=== PATIENT | male | born 1945 | race Caucasian/White ===

== ENCOUNTER 2018-10-17 15:30 | Inpatient (IN) ==
[2018-10-17 16:02] LABS: BASO# 0.01 X1000 (0.0-0.2); BASO% 0.1 % (0.0-0.8); EOS# 0.01 X1000 (0.0-0.7); EOS% 0.1 % (0.0-10.0); HEMATOCRIT 28.2 % (42.0-52.0); HEMOGLOBIN 10.3 g/dL (14.0-18.0); IMM GRAN# 0.04 X1000 (0.0-0.04); IMM GRAN% 0.4 % (0.0-0.5); LYMPH# 1.07 X1000 (1.2-3.4); LYMPH% 9.9 % (20.5-51.1); MCH 34.4 PG (27-31); MCHC 36.5 g/dL (33-37); MCV 94.3 FL (81-99); MONO# 1.31 X1000 (0.11-0.59); MONO% 12.1 % (1.7-9.3); MPV 9.3 FL (7.4-10.4); NEUT# 8.35 X1000 (1.4-6.5); NEUT% 77.4 % (42.2-75.2); PLT 103 X1000 (130-400); RBC 2.99 XMIL (4.7-6.1); RDW 14.9 % (11.5-14.5); WBC 10.79 X1000 (4.8-10.8)
[2018-10-17 16:28] LABS: ALB/GLOB RATIO 0.5; ALBUMIN 2.5 g/dL (3.5-5.0); CALCIUM 8.8 mg/dL (8.8-10.2); CREATININE 2.1 mg/dL (0.7-1.2); POTASSIUM 5.3 mmol/L (3.5-5.1); TOTAL BILIRUBIN 4.19 mg/dL (0.20-1.00); TOTAL PROTEIN 7.3 g/dL (6.3-8.3)
--- NOTE | 2018-10-17 18:51 | PROVIDER DOCUMENTATION ---
This chart was entered by Martha Malone Scribe, acting as scribe for Joshua Lizarraga MD. HPI-General Adult - General Chief Complaint: Edema Stated Complaint: EDEMA,FARTING LIQUID Time Seen by Provider: 10/17/18 18:09 Source: patient Allergies/Adverse Reactions: Patient Allergies Allergy/AdvReac Type Severity Reaction Status Date / Time meperidine [From Demerol] Allergy ITCHING Verified 04/23/18 23:06 Home Medications: Home Medication List Medication Instructions Recorded Confirmed Last Taken Type Atenolol 50 mg PO DAILY 01/30/17 04/23/18 04/23/18 History BENAZEpril [Lotensin] 20 mg PO DAILY 01/30/17 04/23/18 04/23/18 History Hydrocodone/APAP 7.5 mg/325 mg 1 each PO Q6H PRN PRN #30 tablet 02/01/1704/23/18 Rx [[place]-7.5] - History of Present Illness -Gen Adult Nature of Presenting Problems: Pt is 73/m presenting to ED w/ extreme abd and leg edema. Sts that it has been progressively worsening over the last month. He was diagnosed w/ cirrhosis last year sometime and is in liver failure. He sts that he currently takes no medications, he was only rx bp meds, but his pressure has been down lower and he has not taken it. He sts that he has also not been taking lasix because his pressure has been so low. Location of Pain/Injury: reports: abdomen, lower extremity, other (edema) Severity: reports: severe Onset/Duration: reports: other (progressively over 1 month) Timing: reports: getting worse Context/Activities at Onset: reports: none Modifying Factors: improves with: nothing Associated Symptoms: denies: nausea, shortness of breath, vomiting Similar Symptoms Previously?: Yes Recently seen or treated by another doctor?: Yes Review of Systems - Adult - REVIEW OF SYSTEMS - ADULT Constitutional: reports: no symptoms reported. denies: chills, fever Eyes: reports: no symptoms reported Ears, Nose, Mouth & Throat: reports: no symptoms reported Cardiovascular: reports: edema, heart murmur. denies: chest pain Respiratory: denies: cough, shortness of breath, wheezing Gastrointestinal: denies: abdominal pain, diarrhea, nausea, vomiting Genitourinary: reports: no symptoms reported Musculoskeletal: reports: no symptoms reported Integumentary: reports: no symptoms reported Neurological: reports: no symptoms reported. denies: dizziness/vertigo, headache/migraines Psychiatric: reports: no symptoms reported Endocrine: reports: no symptoms reported Hematologic/Lymphatic: reports: no symptoms reported Allergic/Immunologic: reports: no symptoms reported All Other Systems: Reviewed and Negative Past History - Adult - PAST MEDICAL HISTORY-ADULT Review of Records: reports: Old Records Reviewed, Nursing Assessment Review, Medications Reviewed, Social history reviewed & non-contributory. - SOCIAL HISTORY Smoking: quit greater than 1 year Substance Use: none presently/history of abuse, alcohol Alcohol Use Frequency: sober (former use) (4-5 drinks a day until 3 months ago) Physical Exam-General - CONSTITUTIONAL General Appearance: appears well, alert, no apparent distress - EYES Eyes: PERRL/EOMI - HEAD, EARS, NOSE, MOUTH & THROAT HENMT: moist mucous membranes, normal ENT inspection, TMs normal, pharynx normal - NECK Neck: non-tender, full range of motion, supple, normal inspection - RESPIRATORY Respiratory: chest non-tender, lungs clear, normal breath sounds - CARDIOVASCULAR Cardiovascular: systolic murmur (3/6), other (pt has chronic 3+ edema to lower legs, pt has extreme edema to abd.) - GASTROINTESTINAL (ABDOMEN) Abdominal Exam: other (extreme edema) - LYMPHATIC Lymphatic: no adenopathy - MUSCULOSKELETAL Back Exam: normal inspection Extremity: normal range of motion, non-tender, normal gait, normal inspection - SKIN Integumentary: normal color, warm/dry - NEUROLOGIC Neurologic: grossly normal - PSYCHIATRIC Psych/Mental Status: normal mood/affect, normal thought content, normal thought process, oriented x 3 Progress - PLAN OF CARE/RESULTS Progress/Plan/Lab Results: Vital Signs - 8 hr 10/17/18 15:41 Temperature 97.9 F Pulse Rate 85 Respiratory Rate 20 Blood Pressure 97/23 O2 Sat by Pulse Oximetry 88 L Laboratory Results - last 24 hr 10/17/18 10/17/18 15:48 15:48 WBC 10.79 RBC 2.99 L Hgb 10.3 L Hct 28.2 L MCV 94.3 MCH 34.4 H MCHC 36.5 RDW Std Deviation 14.9 H Plt Count 103 L MPV 9.3 Immature Gran % (Auto) 0.4 Neut % (Auto) 77.4 H Lymph % (Auto) 9.9 L Ray % (Auto) 12.1 H Eos % (Auto) 0.1 Baso % (Auto) 0.1 Immature Gran # (Auto) 0.04 Neut # (Auto) 8.35 H Lymph # (Auto) 1.07 L Ray # (Auto) 1.31 H Eos # (Auto) 0.01 Baso # (Auto) 0.01 Sodium 121 L Potassium 5.3 H Chloride 87 L Carbon Dioxide 22 L Anion Gap 12 BUN 52 H Creatinine 2.1 H Estimated GFR/1.73 m2 31 BUN/Creatinine Ratio 25 Glucose 53 L Calculated Osmolality 256 Calcium 8.8 Total Bilirubin 4.19 H AST 203 H ALT 47 H Alkaline Phosphatase 57 Total Protein 7.3 Albumin 2.5 L Globulin 4.8 Albumin/Globulin Ratio 0.5 Amylase 161 Lipase 74 H Orders Category Date Time Status Saline Loc DIRECTED Care 10/17/18 15:46 Active NPO Diet 10/17/18 15:46 Active AMYLASE [CHEM] Stat Lab 10/17/18 15:48 Completed CBC WITH ELECTRONIC DIFF [HEME] Stat Lab 10/17/18 15:48 Completed COMPREHENSIVE METABOLIC PANEL [CHEM] Stat Lab 10/17/18 15:48 Completed LIPASE [CHEM] Stat Lab 10/17/18 15:48 Completed URINALYSIS W/POSS RFLX CULT [URINALYSIS] Stat Lab 10/17/18 15:46 Uncollected Result Diagrams: 10/17/18 15:48 10/17/18 15:48 - CONSULTS/PCP/HOSPITALIST Notification #1 *Consult/PCP/Hospitalist*: Dr. Nowak, Hospitalist Time Discussed: 18:34 Reason/Comments: Pt will be admitted, per Hospitalist Consult Disposition: Admit Departure - Departure Date of Disposition Decision: 10/17/18 Time of Disposition Decision: 18:50 DIAGNOSIS: Cirrhosis, Electrolyte disturbance, LURDES (acute kidney injury) Disposition: ADMITTED INPATIENT 09 Certified Medical Emergency: Emergent Condition: Stable Referrals and Follow-Ups: None,PCP [Primary Care Provider] - - Critical Care Note This patient required my direct & personal management of CC.: No Attestation - Physician/ TAVARES Attestation Patient care was provided by Advanced Practice Provider:: No The physician spent face to face time with patient:: Yes Advanced Practice Provider documentation review:: Supervising physician onsite and consulted in the evaluation and care of this patient. The physician did have a face to face encounter with the patient. This chart was documented by the indicated scribe, (Martha Malone, Rafaelibe) and accurately reflects the services I performed and decisions made by me, Joshua Lizarraga MD, as attested by the provider's signature.
--- NOTE | 2018-10-17 20:10 | Diag Imaging Result Doc PS360 ---
EXAM: CHEST-PORTABLE - 10/17/2018 HISTORY: liver failure TECHNIQUE: Portable chest COMPARISON: None. FINDINGS: Heart size appears within normal limits. Inspiration is mildly shallow. There is mild prominence of central vascular markings. There is mild basilar subsegmental atelectasis. There is no consolidation, pleural effusion, or pneumothorax identified. IMPRESSION: Mildly shallow inspiration. Mild prominence of central vascular markings. Mild basilar subsegmental atelectasis. Electronically signed by Tyshawn Christensen 10/17/2018 8:08 PM
[2018-10-17] MEDS ORDERED: CALCIUM GLUCONATE IV PUSH ONE (20:59)
[2018-10-17] MEDS ORDERED: ALBUTEROL 0.5% INH CONC FOR HYPERKALEMIA INH ONE (20:59)
[2018-10-17] MEDS ORDERED: HUMULIN R IV ONE (21:00)
[2018-10-17] MEDS ORDERED: D50W SYRINGE IV ONE (21:00)
[2018-10-17] MEDS ORDERED: LASIX 100 MG in NS 90 ML IV SCH (21:00)
[2018-10-17] MEDS: ALBUMIN 25% IV SCH (22:05)
[2018-10-17 22:31] LABS: URINE SOURCE CATH
[2018-10-17 22:34] LABS: BILIRUBIN URINE SMALL (NEGATIVE); BLOOD URINE TRACE (NEGATIVE); COLOR YELLOW; GLUCOSE URINE NEGATIVE (NEGATIVE); KETONE URINE 10 mg/dL (NEGATIVE); LEUKOCYTES URINE NEGATIVE (NEGATIVE); NITRITE URINE NEGATIVE (NEGATIVE); PH URINE 5.5; PROTEIN URINE TRACE mg/dL (NEGATIVE); SP GRAVITY URINE 1.014; TURBIDITY URINE HAZY (CLEAR); UR EPITHELIAL CELLS <10 /HPF (<10); URINE BACTERIA NEGATIVE /HPF; URINE WBC <10 /HPF (<10); UROBILINOGEN URINE 2 mg/dL (NORMAL)
--- NOTE | 2018-10-17 23:11 | HISTORY AND PHYSICAL ---
CHIEF COMPLAINT: Swelling in abdomen and lower extremities. HISTORY OF PRESENT ILLNESS: Mr. Carlin is a 73-year-old male who comes in with extreme edema in his lower extremities as well as edema in his abdomen with an increasing girth. The patient has known cirrhosis. He is currently taking no medications. Apparently, he stopped his blood pressure medicine around 6 months ago because it has been low. He has not been taking his Lasix for the past few weeks because, again, his blood pressure has been too low. It has been progressively worsening over the last 1 month. He denies overt shortness of breath. He says that he is maybe short of breath with exertion. However, his oxygen saturation was 88% on room air on arrival. He was a former drinker for many years up until around 4 months ago. I believe he drank 5-6 drinks a day. Other past medical history was hypertension and had a postoperative GI bleed, I believe, after having a cholecystectomy I think in April of last year. At any rate, Mr. Carlin has no other complaints at this time. His vital signs were very marginal in the emergency room. He was hypotensive with a blood pressure of 97/23, mean arterial pressure of 43. The patient will be admitted to the ICU for further evaluation and treatment. PAST MEDICAL HISTORY: See HPI. PREVIOUS SURGICAL HISTORY: Cholecystectomy and appendectomy. FAMILY HISTORY: Denies any GI issues or liver disease. SOCIAL HISTORY: He has been a heavy drinker in the past, quit around 4 months ago. Drank 5-6 drinks a day. Lives with I believe either his ex- or girlfriend, I am unsure. She stated that she is as close as he has to a . He denies tobacco or illicit drugs. ALLERGIES: Meperidine. HOME MEDICATIONS: No home medications at this time. REVIEW OF SYSTEMS: Fourteen point review of systems conducted with the patient. Pertinent positives listed above in the HPI. All other systems reviewed and found to be negative. PHYSICAL EXAMINATION: VITAL SIGNS: Temperature 97.9, pulse 85, respirations 20, blood pressure 97/23 , oxygen saturation 88% on room air. GENERAL: Pleasant 73-year-old male lying in the ER stretcher. Significant other at the bedside also very pleasant. Patient is in no acute distress. HEENT: Head is atraumatic, normocephalic. Pupils equal, round, reactive to light. Extraocular eye movement is intact. Patient had noted scleral icterus. Conjunctiva is mildly pale. Oral mucosa was moist. NECK: Supple. No JVD. No thyromegaly. Trachea is midline. No cervical lymphadenopathy. CARDIAC: S1, S2 appreciated. A 3/6 systolic ejection murmur noted. No gallops. No rubs. LUNGS: Crepitation noted throughout the bilateral lung lira greater at the bases. Decreased bilaterally. Poor inspiratory effort. Symmetric rise and fall with respirations. ABDOMEN: Protuberant, soft, mildly distended, nontender. Positive fluid wave test. Bowel sounds distant all 4 quadrants, I believe normoactive. EXTREMITIES: Three-plus pitting edema bilateral lower extremities mid thigh to foot. One-plus pedal pulses. No clubbing, cyanosis. GENITOURINARY: No bladder distention. Macias catheter will be placed for strict I's and O's. Otherwise deferred. SKIN: Jaundiced. Telangiectasis along his chest. No acute rash or lesion. DIAGNOSTIC DATA: X-ray: Shallow inspirations, increased pulmonary vascular markings. LABORATORY DATA: WBC 10.79. Hemoglobin 10.3. Hematocrit 28.2. Platelet count 103. Sodium 121. Potassium 5.3. Chloride 87. Carbon dioxide 22. BUN 52. Creatinine 2.1. Glucose 53. Total bilirubin 4.19. ASSESSMENT AND PLAN: 1. Cirrhosis with ascites. We will consult Dr. Elliott. We will order abdominal ultrasound. Patient may need possible paracentesis. Patient is also having large amounts of lower extremity edema. We will start Lasix drip, give 3 doses of albumin q.6 hours , start on Tani- Synephrine drip as he is hypotensive. 2. Acute kidney injury with chronic renal insufficiency. As noted, we will start Lasix. It is possible that patient's intravascularly dry. However, he is third spacing greatly at this time. We will diureses, recheck laboratory data in the a.m. 3. Hyperkalemia. Calcium gluconate, D5, albuterol and IV insulin will be given in the emergency room. We will recheck laboratory data. 4. Hyponatremia. We will recheck every 6 hours as it is possibly dilutional. As noted, we will diureses patient and continue to monitor labs. 5. Anemia of chronic disease, aware. We will monitor. CRITICAL CARE TIME: 30 minutes. Further recommendations per patient clinical course. Dictated by VIOLET Rojas for Louie Mcdaniel MD I have performed a face to face diagnostic evaluation. Labs/ Xrays reviewed, Exam - chest- rales, Abd- soft A/P Cirrhosis, LURDES- Admit- GI consult, monitor renal function. Dr. Mcdaniel cc: VIOLET Rojas MD Manish Arora, MD [facility] CENTERAlvaro
[2018-10-17] MEDS: NEO-SYNEPHRINE 50 MG in NS 250 ML IV SCH (23:53)
[2018-10-18 01:42] LABS: CALCIUM 8.7 mg/dL (8.8-10.2); CREATININE 2.4 mg/dL (0.7-1.2); POTASSIUM 5.1 mmol/L (3.5-5.1)
[2018-10-18] MEDS: ALBUMIN 25% IV SCH ×3 (03:45→16:00)
[2018-10-18] MEDS: NEO-SYNEPHRINE 50 MG in NS 250 ML IV SCH ×2 (05:30→10:51)
[2018-10-18 05:41] LABS: BASO# 0.01 X1000 (0.0-0.2); BASO% 0.1 % (0.0-0.8); EOS# 0.06 X1000 (0.0-0.7); EOS% 0.5 % (0.0-10.0); HEMATOCRIT 24.3 % (42.0-52.0); HEMOGLOBIN 8.7 g/dL (14.0-18.0); IMM GRAN# 0.05 X1000 (0.0-0.04); IMM GRAN% 0.4 % (0.0-0.5); LYMPH# 1.25 X1000 (1.2-3.4); LYMPH% 9.8 % (20.5-51.1); MCHC 35.8 g/dL (33-37); MCV 94.9 FL (81-99); MONO# 2.14 X1000 (0.11-0.59); MONO% 16.7 % (1.7-9.3); MPV 9.1 FL (7.4-10.4); NEUT# 9.28 X1000 (1.4-6.5); NEUT% 72.5 % (42.2-75.2); PLT 90 X1000 (130-400); RBC 2.56 XMIL (4.7-6.1); WBC 12.79 X1000 (4.8-10.8)
[2018-10-18 05:59] LABS: CALCIUM 8.4 mg/dL (8.8-10.2); CREATININE 2.1 mg/dL (0.7-1.2); MAGNESIUM 2.3 mg/dL (1.5-2.7); POTASSIUM 5.1 mmol/L (3.5-5.1)
[2018-10-18 09:37] LABS: INR 3.53; PROTIME 37.8 Seconds (11.0-16.0)
[2018-10-18] MEDS ORDERED: VITAMIN K PO ONE (11:03)
--- NOTE | 2018-10-18 12:14 | Diag Imaging Result Doc PS360 ---
EXAM: US ABDOMEN-COMPLETE HISTORY: ascites TECHNIQUE: Abdominal ultrasound COMPARISON: 04/24/2018 FINDINGS: No abdominal aortic aneurysm. There is fluid about the liver. The liver is nodular. No focal hepatic abnormality. Spleen is not enlarged. There is fluid about the spleen as well. The kidneys are hyperechoic. No hydronephrosis. The gallbladder is not present. The pancreas and inferior vena cava are are only partly IMPRESSION: Prominent ascites. However the INR is markedly elevated and should be lowered for a paracentesis to be performed. Electronically signed by Ricco Zurita 10/18/2018 12:12 PM
[2018-10-18 13:09] LABS: CALCIUM 8.4 mg/dL (8.8-10.2); CREATININE 2.1 mg/dL (0.7-1.2); POTASSIUM 4.9 mmol/L (3.5-5.1)
[2018-10-18] MEDS ORDERED: ALDACTONE PO SCH (13:45)
[2018-10-18] MEDS ORDERED: ALBUMIN 25% IV SCH (14:15)
[2018-10-18] MEDS ORDERED: LASIX IV SCH (14:15)
[2018-10-18] MEDS ORDERED: SODIUM CHLORIDE 0.9% INJ SCH (14:15)
--- NOTE | 2018-10-18 14:45 | PROGRESS NOTE ---
DATE: 10/18/2018 SUBJECTIVE: Patient has no major complaints. OBJECTIVE: Blood pressure is 100/57, heart rate 95, respiratory rate 18, temperature 98.4 degrees, 95% on 4 L.Cardiovascular: Soft S1, S2. Pulmonary: Diminished at the bases. Some rales. Gastrointestinal: Distended, protuberant. Bowel sounds positive. Positive fluid wave. Extremities: He had 2+ pitting edema up to his knees and he had erythema bilaterally on both legs. LABORATORY DATA: White count is 12, hemoglobin and hematocrit 8 and 24, platelets of 90,000. Sodium is 125, BUN and creatinine is 59 and 2.1. PROBLEM LIST: 1. Symptomatic ascites related to cirrhosis, possibly alcoholic, although says he quit drinking about 6 months ago. He will need paracentesis, but he is too coagulopathic. I agree I think diuretics are important, but his renal function has deteriorated since last year. I am not sure if he is developing some degree of hepatorenal. 2. Acute kidney injury. He is on Lasix. Creatinine has been stable so I think we may be able to continue Lasix. This is a difficult situation because he is intravascularly depleted but clinically overloaded. I am just afraid that Lasix will cause further deterioration. We will check urine electrolytes and get a Nephrology consult, continue pressors and follow. We will also continue albumin with the Lasix. 3. Cirrhosis with decompensation. Fortunately, he is not encephalopathic, but he is very coagulopathic. He has at least Child's Class B. We will continue to follow. 4. Hyperkalemia and hyponatremia. Those have both resolved. I think again this is related to volume overload and that may be kind of an up and down issue while he is on diuretics. 5. Anemia. That has progressed but there is no gross evidence of bleeding. We will follow hemoglobin and hematocrit closely. 6. Coagulopathy related to liver dysfunction. We will give him vitamin K and I am going to give him FFP just because I do not think his INR is going to stabilize quickly before we can pursue paracentesis. I think he does need paracentesis once we can do it safely because of just symptomatic relief and pushing on the diaphragm and things of those nature. DVT prophylaxis will be difficult. He is coagulopathic right now and thrombocytopenic and volume overloaded in his legs. If he can tolerate SCDs, we may pursue those, but we will continue to follow. cc: Yoshi Ly MD
[2018-10-18] MEDS: PROTONIX IV SCH (15:00)
[2018-10-18 15:22] LABS: UR CREAT RANDOM 111.3 mg/dL (14-26); UR PROT RANDOM 23.4 mg/dL; UR SODIUM < 10 mmoll
[2018-10-18] MEDS: LEVOPHED 8 MG in D5 1/2 NS 250 ML IV SCH (16:30)
--- NOTE | 2018-10-18 17:53 | CONSULTATION ---
DATE OF CONSULTATION: 10/18/2018 REASON FOR CONSULTATION: Ascites, cirrhosis of the liver. HISTORY OF PRESENT ILLNESS: This is a 73-year-old patient of Dr. Elliott. Patient reports being diagnosed with cirrhosis of the liver last year. Patient relates cirrhosis to alcohol abuse. He states he has not drank since his diagnosis about 4 to 5 months ago. Patient reports a history of hypertension but over the last 6 months he has had low blood pressure and has not been taking his blood pressure medication. He also states that he was not able to take his Lasix because of his low blood pressure. Patient reports increasing swelling over the last 3 to 4 weeks. He has had lower extremity edema and increasing abdominal distention, swelling. He really denies significant shortness of breath. No reported chest pain. He usually has regular bowel movements. He reports seeing Dr. Jerez in the past for possible liver cancer but states that was negative. He reports history of bleeding after having his teeth pulled last year, he states he had to receive blood. PAST MEDICAL HISTORY: Diagnosis of cirrhosis of the liver, hypertension. PAST SURGICAL HISTORY: Cholecystectomy and appendectomy. ALLERGIES: Demerol causing itching. HOME MEDICATIONS: Atenolol 50 mg daily, Lotensin 20 mg daily, Hiland 7.5 every 6 hours as needed. SOCIAL HISTORY: History of alcohol abuse. He quit around 4 months ago when he was diagnosed with cirrhosis. REVIEW OF SYSTEMS: Per history of present illness. PHYSICAL EXAMINATION: Vital Signs: Temperature 98.7 degrees, pulse 95, respirations 18, blood pressure 100/57. General: Awake, alert, no acute distress. HEENT: Normocephalic, atraumatic. Pupils equal, round, reactive to light. Sclerae nonicteric. Respirations: Lung sounds essentially clear. Cardiovascular: Regular rate and rhythm. Abdomen: Distended, nontender. Ascites noted but generally soft. Extremities: Bilateral lower extremity edema noted. He has redness to the lower extremities. DIAGNOSTIC RESULTS: Hematology. WBC 12.79, hemoglobin 8.7, hematocrit 24.3, MCV 94.9, platelet 90,000. Coagulation, pro time 37.8, INR 3.53. Chemistry, sodium 125, potassium 4.9, chloride 89, CO2 21, BUN 59, creatinine 2.1, glucose 84, total bilirubin 4.19, AST 203, ALT 47, alkaline phosphatase 57. Imaging. Abdominal ultrasound showed prominent ascites. ASSESSMENT AND PLAN: 1. Cirrhosis of the liver. 2. Ascites. 3. Acute kidney injury, history of chronic renal insufficiency. Patient has been started on a Lasix drip. PLAN: Will allow 2 g sodium diet, add Aldactone 50 mg daily. Hopefully be able to wean off his vasopressor. He is currently on Tani-Synephrine. Patient has received albumin 3 doses. Would check PT/INR in the morning. He has had vitamin K and FFP ordered. Patient needs diagnostic and therapeutic paracentesis when able. Further plans will be made as needed. We will see over the weekend and Dr. Elliott will picked up his care on Saturday. Thank you for this consultation. I have discussed this case with Dr. Wong. Dictated by VIOLET Bell for Roshan Wong MD cc: VIOLET Blas MD [facility]
[2018-10-18 18:23] LABS: CALCIUM 8.2 mg/dL (8.8-10.2); CREATININE 2.3 mg/dL (0.7-1.2); POTASSIUM 4.7 mmol/L (3.5-5.1)
[2018-10-19] MEDS: ALBUMIN 25% IV SCH ×2 (03:33→14:59)
[2018-10-19 05:51] LABS: HEMATOCRIT 22.2 % (42.0-52.0); HEMOGLOBIN 7.9 g/dL (14.0-18.0); MCHC 35.6 g/dL (33-37); MCV 98.2 FL (81-99); MPV 9.2 FL (7.4-10.4); RBC 2.26 XMIL (4.7-6.1)
[2018-10-19 05:59] LABS: INR 2.59; PROTIME 29.6 Seconds (11.0-16.0)
[2018-10-19] MEDS ORDERED: VITAMIN K SUBQ ONE (11:20)
[2018-10-19] MEDS: LEVOPHED 8 MG in D5 1/2 NS 250 ML IV SCH (11:42)
[2018-10-19] MEDS ORDERED: NS 250 ML ONE (12:21)
[2018-10-19] MEDS ORDERED: LASIX IV SCH (12:30)
--- NOTE | 2018-10-19 12:42 | PROGRESS NOTE ---
DATE: 10/19/2018 SUBJECTIVE: He is feeling better. Swelling, he feels like is decreased. OBJECTIVE: Vital Signs: Blood pressure is 112/60, heart rate 91, respiratory rate 20, temperature 98.2 degrees, 93% on about 4 L. His ins and outs are 2686 in and 550 out. Overall, urine output is marginal. Cardiovascular: Regular rate and rhythm. Pulmonary: Bilateral breath sounds diminished at the bases. GI: Soft, nontender, nondistended. Bowel sounds are positive. Laboratory Data: White count is 8, hemoglobin and hematocrit 8 and 22, platelets of 51,000. INR still 2.5. I do not have electrolytes today. PROBLEM LIST: 1. Symptomatic ascites. Unfortunately, he is still too coagulopathic for a tap. We need to work on that. Anticipate hopefully tomorrow we can get that resolved. 2. Shock related to hypoperfusion. Not clearly that he has sepsis. At least there is no clear source. Spontaneous bacterial peritonitis may be a possibility though, as is bleeding. He is on Tani-Synephrine. We will continue to follow. May institute some cultures too and antibiotics until we know there is not a clear source of infection. 3. Acute kidney injury. His creatinine had been stable. We did not get labs today so I am waiting on the repeat basic. Renal has been consulted because this may be hepatorenal syndrome. His urine sodium is low, which is consistent with hepatorenal in which case I may want to give him fluid but he has already third-spacing significantly, which makes fluid management a bit difficult. Waiting on nephrology input. At this point, we are giving him pressors and holding further Lasix, although I will give him a dose after his blood and he is getting albumin. 4. Cirrhosis with decompensation, presumed alcoholic. We will continue to follow. Gastroenterology has been consulted. 5. Hyponatremia, likely related to volume overload. We are going to continue to monitor. 6. Anemia. No clear evidence of bleeding but his hemoglobin and hematocrit are decreased. We will give him one unit of packed red blood cells and follow. 7. Coagulopathy, likely related to cirrhosis. I am going to give him another dose of vitamin K. Fresh frozen plasma has been administered. We may need to give him further fresh frozen plasma. I am holding on blood products just because of low counts. 8. Thrombocytopenia. That has also progressed. Also, likely related to cirrhosis. He may need platelets if we are going to pursue instrumentation. For right now, I am just going to observe. DISPOSITION: Pending his clinical status. We will still monitor in the ICU just because of high chance of decompensation with his decompensated cirrhosis. cc: Yoshi Ly MD
--- NOTE | 2018-10-19 13:43 | PROGRESS NOTE ---
DATE: 10/19/2018 SUBJECTIVE: The patient is resting comfortably. Denies any complaints. He tells me that he feels his abdominal swelling and lower extremity swelling has gone down. He reports no abdominal pain or abdominal cramps. He is tolerating a liquid diet. OBJECTIVE: Vital Signs: Temperature 98.6 degrees, pulse is 82 per minute, breathing of 15, blood pressure was 117/61. HEENT: Head is atraumatic, normocephalic. Eyes: Conjunctivae pale. Sclerae mildly icteric. Nares patent. Has got nasal cannula in place. Chest : Clear to auscultate. Heart: Audible. No murmur. Abdomen: Slightly distended but soft and nontender. I could not appreciate any mass or visceromegaly. He has ascites. Extremities: He has no asterixis noted. Lower extremity swelling is down. He has washer woman legs. Has hyperemia. LABORATORIES: Reviewed which showed WBC is 8.0, hemoglobin 7.9, hematocrit 22.2 , MCV 98.2, and platelets were 51,000. PTT 29.6, INR 2.5. Sodium 122, potassium 4.7, chloride 87, bicarb is 22, BUN is 54, creatinine 2.3. IMPRESSIONS: 1. Ascites and pedal edema secondary to cirrhosis of the liver and portal hypertension. Better. 2. Chronic liver disease secondary to alcohol. 3. Cirrhosis of the liver with portal hypertension. MELD score 33. No signs of hepatic encephalopathy. No signs of encephalopathy. 4. Coagulopathy secondary to cirrhosis of the liver. He has received FFP and vitamin K. His INR has improved just a tad. 5. Thrombocytopenia secondary to cirrhosis and portal hypertension and hypersplenism. Renal insufficiency could be related to volume contraction or secondary to underlying kidney disease. PLAN: At this point, I agree with the correction of coagulopathy so we can have a diagnostic as well as therapeutic paracentesis. In the meantime, continue supportive care. His MELD score is very high and carries a poor prognosis. He may benefit from evaluation of possible transplant, again, if possible. Will watch his renal function as well as other lab values and correction will be made according to his progress. Dr. Elliott will chart picker the case tomorrow. cc: MD WADE Ling
--- NOTE | 2018-10-19 14:35 | NEPHROLOGY CONSULTATION ---
DATE: 10/19/2018 REASON FOR CONSULTATION: Hepatorenal syndrome. HISTORY OF PRESENT ILLNESS: Mr. Carlin is a 73-year-old white male with known history of alcoholic cirrhosis. He has been followed intermittently with Dr. Elliott. He has been noticing increasing lower extremity swelling and abdominal girth. Because of this, he came to the emergency room for evaluation. He also developed shortness of breath at the time of his swelling. He states he is dry now but has been dry only for about 4 months. He does have a history of gastrointestinal bleeding, but no nausea or vomiting or diarrhea at this time. His initial evaluation on the found his blood pressure 97/23, heart rate 85, respirations 20, and he was afebrile. Urine output was low, and his initial creatinine was 2.1. Baseline creatinine is 1.5 in April of last year. Since admission, he has had no significant change in kidney function, and his urine output has been low at 300-500 mL daily. We were asked to assist with his management. I discussed the case directly with Dr. Ly by telephone yesterday, and we formulated the initial treatment plan. PAST MEDICAL HISTORY: As above. HOME MEDICATIONS: None. ALLERGIES: Meperidine. FAMILY HISTORY: Negative. REVIEW OF SYSTEMS: Noncontributory. PHYSICAL EXAMINATION: Vital Signs: Blood pressure 117/61, heart rate 82, respirations 15, afebrile. General: He is a chronically ill-appearing man in no acute distress. He has obvious muscle wasting in the face and extremities. Skin: Pale and mildly jaundiced. Conjunctivae are pale. Pupils are equal. Oropharynx is dry. Neck: Supple. Neck veins are not distended. Trachea is midline. Heart: PMI is nondisplaced. Regular rate and rhythm without murmurs, rubs, or gallops. Lungs: Have equal breath sounds. No crackles or wheezes. Abdomen: Distended and soft. No palpable organomegaly. Bowel sounds are present. Extremities: With 3+ edema. No clubbing or cyanosis. IMPRESSION: Hepatorenal syndrome, type 2. Most likely. Low FENa. Certainly more crystalloid is not going to be helpful. He is receiving albumin and other blood products. Norepinephrine. His urine output seems to be improved today. We will continue to observe his response. He is receiving 1 dose of IV Lasix which I think is acceptable. No other medication changes required at this time. He does not meet criteria for dialysis. cc: Beni Diaz MD
[2018-10-19] MEDS: PROTONIX IV SCH (14:59)
[2018-10-19] MEDS: ROCEPHIN 1 GM in NS 50 ML IV SCH (15:11)
[2018-10-19 16:18] LABS: RETIC% 2.25 % (0.8-2.1); RETIC-HE 42.8 PG (28.2-36.6)
[2018-10-19 16:42] LABS: IRON SATURATION 65 %; TIBC 120 ug/dL; TOTAL IRON 78 ug/dL (53-167); UNBOUND IRON 42 ug/dL (112-346)
[2018-10-19 16:44] LABS: CALCIUM 8.5 mg/dL (8.8-10.2); CREATININE 2.2 mg/dL (0.7-1.2); POTASSIUM 4.9 mmol/L (3.5-5.1)
[2018-10-19 17:00] LABS: FERRITIN 691 ng/mL (30-400)
[2018-10-19] MEDS ORDERED: CARDIZEM IV ONE (21:43)
[2018-10-19] MEDS ORDERED: CARDIZEM 100 MG in NS 80 ML IV SCH (21:45)
[2018-10-20] MEDS: ZOFRAN IV PRN ×2 (01:15→21:06)
[2018-10-20] MEDS: ALBUMIN 25% IV SCH ×2 (04:38→16:02)
[2018-10-20 04:47] LABS: INR 2.69; PROTIME 30.5 Seconds (11.0-16.0)
[2018-10-20 04:54] LABS: HEMATOCRIT 27.7 % (42.0-52.0); HEMOGLOBIN 9.5 g/dL (14.0-18.0); MCH 32.8 PG (27-31); MCHC 34.3 g/dL (33-37); MCV 95.5 FL (81-99); MPV 9.9 FL (7.4-10.4); RBC 2.9 XMIL (4.7-6.1); RDW 16.5 % (11.5-14.5); WBC 11.31 X1000 (4.8-10.8)
[2018-10-20 05:39] LABS: ALB/GLOB RATIO 0.9; ALBUMIN 3.2 g/dL (3.5-5.0); CALCIUM 8.6 mg/dL (8.8-10.2); CREATININE 2.1 mg/dL (0.7-1.2); POTASSIUM 4.6 mmol/L (3.5-5.1); TOTAL BILIRUBIN 6.75 mg/dL (0.20-1.00); TOTAL PROTEIN 6.7 g/dL (6.3-8.3)
--- NOTE | 2018-10-20 06:37 | NEPHROLOGY PROGRESS NOTE ---
DATE: 10/20/2018 SUBJECTIVE: He is about the same this morning. He states he thinks he has had more urine output and perhaps his swelling is some improved. OBJECTIVE: Vital Signs: Blood pressure 126/71, heart rate 92, respirations 24, afebrile. Intake 1.8 L. Output 1.6 L. General: No acute distress. Skin: Warm and dry. Conjunctivae are pink. Neck: Neck veins are not distended. Oropharynx is dry. Heart: Regular without gallops. Lungs: Equal with a cough and a few rhonchi. Abdomen: Soft, nontender. Bowel sounds present. Severely distended. Extremities: Have 2+ edema. No clubbing or cyanosis. IMPRESSION: 1. Acute kidney injury. 2. Presumed hepatorenal syndrome, type 2. 3. Urine output is slightly better in the last 24 hours. He did receive a single dose of furosemide 40 mg. BUN and creatinine are unchanged. I will dose with furosemide 40 mg twice daily today and observe his response. Continue norepinephrine. No other changes. cc: Beni Diaz MD
[2018-10-20] MEDS: LASIX IV SCH ×2 (06:47→18:33)
--- NOTE | 2018-10-20 09:16 | EKG Report ---
Test Performed on : 10/19/2018 9:37:59 PM Test Reason : HR 160 Blood Pressure : / mmHG Vent. Rate : 133 BPM Atrial Rate : 138 BPM P-R Int : 000 ms QRS Dur : 086 ms QT Int : 288 ms P-R-T Axes : 000 030 226 degrees QTc Int : 428 ms Atrial fibrillation. with rapid ventricular response. Low voltage QRS Nonspecific T wave abnormality Abnormal ECG When compared with ECG of 19-OCT-2018 21:37, (Unconfirmed) No significant change was found Confirmed by Marga LAFLEUR, Brayan Jackson ([id number]) on 10/20/2018 3:28:48 PM
[2018-10-20] MEDS ORDERED: VITAMIN K 10 MG in NS 50 ML IV ONE (09:42)
[2018-10-20] MEDS: PROTONIX IV SCH ×2 (10:21→21:06)
--- NOTE | 2018-10-20 11:22 | GASTROENTEROLOGY PROGRESS NOTE ---
DATE: 10/20/2018 SUBJECTIVE: Patient is resting in bed. He is on a full face mask. He has abdominal distention. He denies any abdominal pain. He had eaten his breakfast today. He had 2 formed brown stools this morning. OBJECTIVE: Vital signs: Temperature 99.9, pulse rate of 96, respiratory rate of 28, blood pressure 131/65, saturating 92% on non-rebreather. Body weight of 219 pounds 1.6 ounces, BMI of 32.4 kg/m2. General: Moderate built, moderately nourished, lying in bed, in no acute distress. HEENT: Pale conjunctivae. Icteric sclerae. Face mask in place. Neck: Supple. Abdomen: Distended. Positive ascites. No rebound. No guarding. Extremities: Bilateral lower extremity edema noted. Neurologic: He was awake, alert, and answers all questions. LABS: Hemoglobin and hematocrit are 9.5 and 27.7, white count of 11.31, platelet count of 52,000. PT of 30.5, INR of 2.69. Sodium of 126. Potassium 4.6, chloride 98, bicarb 23, anion gap 13, BUN of 59, creatinine 2.1, glucose of 118, calcium is 8.6. Total bilirubin 6.75, AST 107, ALT 31, alkaline phosphatase 45, total protein 6, albumin of 2.2. Folate of 8. B12 of more than 2,000. Percentage saturation of iron is 65%. Ferritin of 691. His hemochromatosis genotype studies are negative, done last year. Blood culture x2 have been drawn since yesterday and they are currently pending. Stool for occult blood was positive. IMPRESSION AND PLAN: 1. Liver cirrhosis secondary to alcoholic liver disease. We will continue to follow the liver enzymes. We will start on pentoxifylline 400 mg p.o. t.i.d. 2. Hyponatremia. Continue a low-sodium diet and free fluid restriction less than 1.5 L in 24 hours. 3. Ascites. We have to correct his INR before he can get a paracentesis. I will give him another dose of vitamin K. We will schedule for paracentesis tomorrow. We will give him FFP if needed. 4. Anemia. Continue to watch for now. Start him on Iron C b.i.d., multivitamin 1 once daily. 5. Coagulopathy. Likely secondary to decompensated liver cirrhosis. We will try vitamin K and FFP. 6. Acute renal insufficiency. Followed by Dr. Diaz. 7. Gastrointestinal prophylaxis with PPIs b.i.d. 8. The above plan was discussed with the patient and nursing staff and all questions answered. cc: MD Sebastián Persaud MD MTDAlvaro
--- NOTE | 2018-10-20 12:07 | PROGRESS NOTE ---
DATE: 10/20/2018 SUBJECTIVE: This morning, Mr. Carlin continues to be in the ICU, still on the Levophed. Roommate was at the bedside at the time of the encounter. OBJECTIVE: Vital Signs: Blood pressure is 127/64, pulse is 88, respirations 22 , temperature 99.9 degrees. General: Mr. Carlin is a 73-year-old gentleman. He is in bed, seems to be in mild respiratory distress. HEENT: Mucosa is pink and moist. Anicteric. Acyanotic. Neck: Supple. Chest: Air entry is bilaterally reduced. There is respiratory rhonchi as well as crackles posteriorly in both lung lira. Cardiovascular: Regular rate and rhythm. I did not hear any murmurs. Abdomen: Diffusely distended with fluid shifting dullness as well as fluid thrill. Extremities: Trace pedal edema. POLICE LIEUTENANT PRECINCT: The patient is awake, alert, and oriented. LABORATORY DATA: WBC is 11.31, hemoglobin is 9.5, platelet count of 52,000. INR is down to 2.69. Sodium is 126, potassium is 4.6, chloride is 90, bicarb is 23, creatinine is down to 2.1. ASSESSMENT: 1. Severe ascites, likely secondary to cirrhosis of the liver. The patient is pending paracenteses. 2. Hypotension on presentation, improved on pressors. Blood cultures are still pending. The patient is currently on antibiotics. 3. Cirrhosis of the liver complicated with ascites, coagulopathy, and pancytopenia. The patient has a MELD score of 32 with low sodium, and a Couch Child score of 12, all consistent with advanced liver disease and poor prognosis. 4. Folate deficiency. Will continue to replace this. 5. Acute kidney injury, presumably due to hepatorenal syndrome, type 2. Nephrology is on board. 6. Hypoxemic respiratory failure secondary to pulmonary edema, presumably from the ascites. The patient is currently on diuretic therapy. In general, I think Mr. Carlin has advanced cirrhosis complicated with coagulopathy, ascites, and renal failure. He is pending paracentesis tomorrow, hopefully after his coagulopathy is corrected. cc: Sebastián Davis MD [facility]PITALAlvaro
[2018-10-20] MEDS: TRENTAL PO SCH ×2 (12:19→18:48)
--- NOTE | 2018-10-20 13:11 | ECHO REPORT ---
ORDER DATE: 10/20/2018 ECHOCARDIOGRAPHIC MEASUREMENTS: 1. Interventricular septum 1.0, left ventricular posterior wall 1.0, diastolic diameter 4.8, left atrium 4, aorta 3.5. 2. Normal left ventricular cavity size. Estimated ejection fraction of 65%. 3. Aortic valve leaflets are trileaflet. Mitral valve was normal. Tricuspid valve was normal. Pulmonic valve was normal. There is no aortic stenosis or regurgitation. 1. There is trace mitral regurgitation, trace tricuspid regurgitation. Peak velocity across the aortic valve less than 2 m/sec. 2. There is no pericardial effusion. Large peritoneal fluid was noted with fibrinous strands. Cannot rule out pleural effusion. There is no pericardial effusion or obvious intracardiac mass or thrombus seen. cc: MD Boogie Cates CRNP
[2018-10-20] MEDS: ATIVAN IV PRN ×3 (14:46→23:45)
[2018-10-20] MEDS: CARDIZEM 125 MG in NS 100 ML IV SCH (14:58)
--- NOTE | 2018-10-20 15:38 | EKG Report ---
Test Performed on : 10/20/2018 1:39:25 PM Test Reason : ICU. No order in [place] Blood Pressure : / mmHG Vent. Rate : 140 BPM Atrial Rate : 119 BPM P-R Int : 000 ms QRS Dur : 094 ms QT Int : 290 ms P-R-T Axes : 000 016 216 degrees QTc Int : 442 ms Atrial fibrillation. with rapid ventricular response. Low voltage QRS Nonspecific ST and T wave abnormality Abnormal ECG When compared with ECG of 19-OCT-2018 21:37, No significant change was found Confirmed by Marga LAFLEUR, Brayan Jackson ([id number]) on 10/21/2018 7:02:30 AM
[2018-10-20] MEDS: LANOXIN IV SCH ×2 (16:01→21:06)
[2018-10-20] MEDS: ROCEPHIN 1 GM in NS 50 ML IV SCH (16:02)
[2018-10-20] MEDS: LOPRESSOR IV SCH ×3 (16:02→23:26)
--- NOTE | 2018-10-20 19:26 | CARDIOLOGY CONSULTATION ---
DATE: 10/20/2018 REASON FOR CONSULTATION: Atrial fibrillation with rapid response. REQUESTING TEAM: Hospitalist. HISTORY OF PRESENT ILLNESS: Mr. Carlin is a 73-year-old male admitted on 10/17/2018 for management of decompensated cirrhosis of the liver with massive ascites. The patient comes in and is evaluated by Gastroenterology. At this time, the patient has developed atrial fibrillation with rapid response. Last night this was treated with Cardizem with some good response, but now he has reconverted to atrial fibrillation with rapid response and they are requesting help. The patient is confused. He has been given Ativan for agitation and anxiety. He is hyponatremic. PAST MEDICAL HISTORY: Positive for cirrhosis of the liver. This was determined by biopsy in 2017. Dr. Kathleen performed cholecystectomy with liver biopsy. He has had a previous appendectomy. SOCIAL HISTORY: There is a history of heavy alcohol abuse. He is retired, disabled. Lives at home. He is not a smoker. FAMILY HISTORY: Noncontributory. ALLERGIES: Meperidine. SUMMARY OF HOME MEDICATIONS: Included, Atenolol, benazepril, and hydrocodone. His last hospital admission was 04/24/2018 through 04/25/2018 for gingival bleeding and liver disease. He is being followed, I believe, on an outpatient basis by Dr. Elliott from GI team. He has no previous cardiac history, this is a new development of atrial fibrillation. PHYSICAL EXAMINATION: Blood pressure is 130/75, pulse fluctuates from 101 to 140, temperature 98.5, respirations 20. Skin: He appears to be jaundiced. General: Chronically ill, somewhat emaciated. Neck: Shows no jugular venous distention. Chest: Diminished breath sounds with some rhonchi bilaterally. Heart sounds are regular and rhythmic at this time, he has just converted to sinus rhythm. Abdomen: Markedly distended and full of ascites. Cannot feel the liver edge. Extremities: Showed 1+ brawny edema. Pulses are palpable in the feet. Neurological: He is somewhat lethargic and intermittently responsive. He moves four extremities. He responds to pain. LABORATORY DATA: White cell count 11,000, hemoglobin 9.5, hematocrit 27.7%. INR 2.69. Sodium 126, potassium 4.6, BUN is 59, creatinine 2.1. IMAGING: His chest x-ray on admission on 10/17/2018 shows mildly shallow inspiration, mild prominence of central vascular markings. Echo Doppler done on 10/20/2018 shows ejection fraction of 65%, normal mitral valve, and evidence of ascites. Abdominal ultrasound done on 10/18/2018 shows prominent ascites. IMPRESSION: 1. Patient with paroxysmal atrial fibrillation with rapid response. 2. Advanced liver disease with ascites and portal hypertension. The patient has been a long-term drinker. Biopsy proven cirrhosis of the liver . 3. Hyponatremia. 4. Anemia. multifactorial.chronic disease. 5. Coagulopathy secondary to liver disease. RECOMMENDATIONS: From a Cardiology viewpoint, I would probably use a combination of beta- blockers, Cardizem, and digoxin to control his heart rate and continue to offer the supportive care to deal with his advanced liver disease. Primary service to decide course of treatment in conjunction with Gastroenterology since the most pressing issue is the advanced liver failure. cc: Karan Summers MD MTDD
[2018-10-20] MEDS: ICAR-C PO SCH (21:07)
[2018-10-20] MEDS: HALDOL IV PRN (21:25)
--- NOTE | 2018-10-20 22:14 | Diag Imaging Result Doc PS360 ---
EXAM: CHEST-PORTABLE HISTORY: check for aspiration TECHNIQUE: Chest single view COMPARISON: 10/17/2018 FINDINGS: There are dense bilateral infiltrates which have developed since the prior study. Overall inspiratory effort has improved. The heart is not enlarged. Questionable trace left pleural fluid. IMPRESSION: Development of dense bilateral infiltrates. Electronically signed by iRcco Zurita 10/20/2018 10:12 PM
[2018-10-21] MEDS ORDERED: LASIX IV ONE (00:14)
[2018-10-21] MEDS: DOXYCYCLINE 100 MG in NS 250 ML IV SCH ×3 (00:55→23:40)
[2018-10-21] MEDS: FLAGYL 500 MG/NS 500 MG/100 ML IVPB IV SCH ×5 (00:55→23:40)
[2018-10-21 00:56] LABS: ALLEN TEST YES; BE -0.4 mmoll (-3.0-3.0); BLOOD TYPE ARTERIAL; HCO3-(ACT) 24.4 mmoll (20.0-26.0); METHB 0.8 % (0.0-1.5); PCO2(98.6) 46 mmHg (35-45); PO2(98.6) 50 mmHg (60-100); SAMPLE BLOOD; SAO2 87.7 % (95.0-100.0); pH(98.6) 7.35 (7.35-7.45)
[2018-10-21 00:58] LABS: MODALITY NRB; O2HB 84.9 % (95.0-99.0)
[2018-10-21] MEDS: ZOFRAN IV PRN (01:13)
[2018-10-21] MEDS: HALDOL IV PRN ×2 (02:02→11:16)
[2018-10-21] MEDS: CARDIZEM 125 MG in NS 100 ML IV SCH (02:27)
[2018-10-21] MEDS: LOPRESSOR IV SCH ×6 (03:44→23:27)
[2018-10-21] MEDS: LANOXIN IV SCH (03:44)
[2018-10-21] MEDS: ATIVAN IV PRN ×2 (04:24→10:20)
[2018-10-21] MEDS: LASIX IV SCH ×3 (06:19→21:28)
[2018-10-21] MEDS: FOLIC ACID 1 MG in NS 50 ML IV SCH (06:19)
[2018-10-21 07:08] LABS: INR 3.22; PROTIME 35.2 Seconds (11.0-16.0)
[2018-10-21 07:12] LABS: HEMATOCRIT 28.2 % (42.0-52.0); HEMOGLOBIN 9.7 g/dL (14.0-18.0); MCH 33.7 PG (27-31); MCHC 34.4 g/dL (33-37); MCV 97.9 FL (81-99); MPV 10.5 FL (7.4-10.4); RBC 2.88 XMIL (4.7-6.1); RDW 16.8 % (11.5-14.5); WBC 14.1 X1000 (4.8-10.8)
[2018-10-21 07:26] LABS: ALB/GLOB RATIO 1.2; ALBUMIN 3.5 g/dL (3.5-5.0); CALCIUM 8.7 mg/dL (8.8-10.2); CREATININE 2.1 mg/dL (0.7-1.2); TOTAL BILIRUBIN 7.27 mg/dL (0.20-1.00); TOTAL PROTEIN 6.4 g/dL (6.3-8.3)
[2018-10-21] MEDS ORDERED: ALBUMIN 25% IV ONE ×2 (08:45→16:52)
--- NOTE | 2018-10-21 08:46 | CARDIOLOGY PROGRESS NOTE ---
DATE: 10/21/2018 CHIEF COMPLAINT: Irregular heartbeat. SUBJECTIVE: Mr. Carlin apparently took a turn for the worse overnight. There was a question of possible aspiration, vomiting. He is on a BiPAP mask now and he is very lethargic. I have a great difficulty in waking him up. His rhythm has remained sinus for the past 12 hours. OBJECTIVE: VITAL SIGNS: Temperature is 97.2 degrees, pulse 67, respirations 24, blood pressure 105/73. GENERAL: He appears to be jaundiced, in some respiratory distress. LUNGS: He has bilateral rhonchi in the lungs. HEART: Sounds are regular rhythm. I do not hear a gallop or murmur. ABDOMEN: Distended with tense ascites. EXTREMITIES: Show edema. NEUROLOGICAL: He is very lethargic, not very responsive. BLOOD WORK: White cell count 14,100, hemoglobin 9.7, hematocrit 28.2. Sodium 132, potassium 5.0, BUN 63, creatinine 2.1. IMPRESSION: 1. Patient who has paroxysmal atrial fibrillation. 2. Advanced probably end-stage liver disease with tense ascites, demonstrated cirrhosis by biopsy of the liver with coagulopathy. 3. He does have jaundice. His bilirubin today is 7.27. RECOMMENDATIONS: From a Cardiology viewpoint, I will suggest to continue low dose beta mis and low dose Diltiazem. His prognosis really appears to be very poor given his advanced liver disease. Primary service and consulting bottling line attendant to determine further steps in his care for the primary condition. We will follow as needed. cc: Karan Summers MD
[2018-10-21] MEDS: ICAR-C PO SCH ×2 (09:10→21:14)
[2018-10-21] MEDS: TRENTAL PO SCH (09:10)
[2018-10-21] MEDS: CENTRUM SILVER PO SCH (09:10)
--- NOTE | 2018-10-21 09:12 | NEPHROLOGY PROGRESS NOTE ---
DATE: 10/21/2018 TIME SEEN: 0615. SUBJECTIVE: Mr. Carlin is resting quietly in bed. He is now on BiPAP. Nurses state that he had possible aspiration last night. He remains nonverbal, though he does make eye contact and assist with the exam. OBJECTIVE: Vital Signs: His most recent vital signs, patient's last temperature 97.2 degrees, blood pressure 103/50, heart rate 71, respirations are 24. He is on 100% BiPAP. Last recorded saturation is 98%. He has had 1010 in and 1025 out to Macias catheter. Laboratory Data: Sodium 132, potassium 5, chloride is 94, CO2 24, BUN 63, creatinine 2.1, glucose 99, anion gap of 14, calcium 8.7, magnesium 2.1, albumin 3.5. White count 14.1 , hemoglobin 9.7, hematocrit 28.2, with a platelet count of 48,000. PT 35.2, INR 3.22. ABGs, pH 7.35, CO2 46, PO2 50, bicarb 24.4, plasma lactate of 2.2. This is on 100% nonrebreather prior to BiPAP. Physical Examination: General: This is a 73-year-old, white male who is currently resting quietly in bed. He is in no acute distress, though he appears chronically ill. Skin: Warm and dry. HEENT: Normocephalic, atraumatic. Conjunctivae are pale. He has GIO. Mucous membranes are dry. Neck: Supple. Trachea midline. Positive JVD. Cardiovascular: He is regular rate and rhythm. He is without a gallop. Lungs: Coarse scattered crackles in bibasilar lung lira. Abdomen: Large, distended. Hypoactive bowel sounds present. Genitourinary: Not inspected. Macias catheter is in place with adequate urine out. Extremities: He has 3+ lower extremity edema. No clubbing or cyanosis. Neurological: As above. ASSESSMENT AND PLAN: 1. Acute kidney injury. The patient's creatinine has stabilized over the last 72 hours at 2.2 to 2.1. BUN is stable. Adequate urine out. No indications for intervention. 2. Presumed hepatorenal syndrome type 2. Positive urine output. The patient is currently on Lasix twice a day. We will increase this to 80 mg twice a day. We will make sure that his Levophed is added back in at a base rate of 2.5 to 5. Continue on his norepinephrine. Monitor his intakes and outputs. 3. Electrolytes, acid-base balance, and anemia. These are all acceptable. 4. Liver disease. This is currently followed by the primary care. I would like to thank you for allowing us to follow with this patient. Intubated. Hypotensive. I discussed the case with Dr. Davis and the common law . I do not think dialysis will improve his outcome. As such I would not recommend treating him. We will discuss this in the morning. rg Dictated by VIOLET Purvis for Beni Diaz MD Face to face encounter, data reviewed, discussed with Nicole Mansfield on 10/21/18. I agree with the above assessment and plan of care. rg cc: VIOLET Purvis MD [facility]
[2018-10-21] MEDS: PROTONIX IV SCH ×2 (09:18→14:44)
[2018-10-21] MEDS: LEVOPHED 8 MG in D5 1/2 NS 250 ML IV SCH ×2 (10:13→21:44)
--- NOTE | 2018-10-21 10:23 | PROGRESS NOTE ---
DATE: 10/21/2018 SUBJECTIVE: This morning Mr. Carlin is on a BiPAP. I understand last night he became more agitated. At some point he vomited and seemed to have aspirated, and his oxygen level dropped significantly needing to go up on his oxygen demand. The patient was placed on the BiPAP and is currently doing well. OBJECTIVE: Vital signs: Blood pressure is 107/58, pulse is 67, respiration is 19, temperature is 97.8 degrees. General: Mr. Carlin is a 73-year-old gentleman. He is in bed. He seems to be in mild respiratory distress. HEENT: Mucosa is pink and moist. Anicteric. Acyanotic. Neck: Supple. There is positive JVD. Chest: Air entry is bilaterally reduced. There are crepitations posteriorly in both lungs. There is also some expiratory rhonchi. Cardiovascular: Regular rate and rhythm. No murmurs, no rubs, no gallops. Abdomen: Soft. It is diffusely distended with fluid shift and dullness. Extremities: About 1+ pedal edema. There is also edema on the upper extremities. Macias catheter is in place. PHYSICIAN EXTENDER: Patient is awake, alert. Seems to follow some basic commands. LABORATORY DATA: WBC is 14.10, hemoglobin is 9.7, platelet count of 48. Chemistry is also reviewed: Creatinine is 2.1. Rest of chemistry: Not changed much since yesterday. The patient's I's and O's. urine output was 1025. He is currently positive balance of 2610 during the hospital course. MEDICATIONS: Apparent current medications have also been reviewed. Doxycycline and metronidazole were added overnight. ASSESSMENT: 1. Acute hypoxemic respiratory failure secondary to pulmonary edema and possibly aspiration pneumonia. Patient is currently on diuretic therapy and also on antibiotics. He is needing BiPAP. The next step if he continues to get worse would be to intubate him. I will be pending on the family members to come for a discussion. The patient is also pending an abdominal paracentesis, which I think will go a long way to help with his respiratory status. 2. Severe ascites secondary to cirrhosis of the liver with portal hypertension. The patient is pending paracenteses. I think this is scheduled for today. I understand Dr. Melissa will do this at the bedside. 3. Hypotension on presentation, improved. Cultures have been negative so far. 4. Cirrhosis of the liver due to alcohol abuse in the past, which is complicated with ascites, coagulopathy, and pancytopenia. MELD score 32 with low sodium and Couch Child score of 12, all consistent with advanced liver disease and poor prognosis. 5. Folate deficiency. We will continue to replace this. 6. Acute on chronic renal failure, presumably hepatorenal syndrome. Nephrology is on board. PLAN: So, in general, Mr. Carlin this morning looks slightly worse than yesterday. Respiratory status has worsened. A chest x-ray this morning is showing development of dense bilateral infiltrates, a picture of which is concerning for ARDS I think it is a combination of aspiration pneumonia and fluid. We will continue current management with antibiotics and diuretic therapy. patient is being evaluated by other subspecialties. cc: Sebastián Davis MD
[2018-10-21] MEDS ORDERED: QUELICIN (DOSE) ONE (12:41)
[2018-10-21] MEDS ORDERED: DIPRIVAN 1% ONE (12:41)
--- NOTE | 2018-10-21 12:53 | Diag Imaging Result Doc PS360 ---
EXAM: CHEST-PORTABLE HISTORY: intubation TECHNIQUE: Portable chest single view COMPARISON: 10/20/2018 FINDINGS: Dense bilateral infiltrates remain. These are more prominent in the right lung than they were on the prior study. Interval placement of an endotracheal tube. This is in good position tip located approximately 6 cm above deven. There are likely tiny pleural effusions. IMPRESSION: Endotracheal tube in good position. Electronically signed by Ricco Zurita 10/21/2018 12:50 PM
[2018-10-21] MEDS ORDERED: DIPRIVAN 1% 1,000 MG/100 ML BOTTLE ONE (12:57)
[2018-10-21] MEDS ORDERED: VANCOMYCIN 1 GM/NS 1 GM/250 ML IVPB IV ONE (13:11)
[2018-10-21] MEDS ORDERED: VANCOMYCIN IV PER PHARMACY MISC SCH (13:15)
--- NOTE | 2018-10-21 13:16 | PROVIDER PROGRESS NOTE ---
Progress Note - - SUBJECTIVE: Patient had acute aspiration event overnight with subsequent hypoxic requiring initiation of continuous BiPAP. This AM, he was started on low dose levophed for "renal perfusion". He reports some abdominal discomfort. Unable to assess mental status or interview patient given respiratory distress and BiPAP. OBJECTIVE Last Vital Signs Temp 97.9 F 10/21/18 12:05 Pulse 62 10/21/18 12:05 Resp 29 H 10/21/18 12:05 BP 101/49 10/21/18 12:05 Pulse Ox 78 L 10/21/18 12:05 Height 5 ft 9 in Weight 215 lb 8 oz GEN: awake, lethargic, arousable, in respiratory distress HEENT: anicteric NECK: no JVD PULM: increased WOB, difficult to appreciate BS given Bipap CARDIAC: RRR, no murmurs ABD: distended, tympanic anteriorly, bulging flanks and dependent anasarca EXT: LE edema, WWP NEURO: moving all extremities, symmetrically LABS: 10/21/18 10/21/18 10/21/18 00:41 06:41 06:41 WBC 14.10 H Hgb 9.7 L Plt Count 48 L INR 3.22 pH 7.35 pCO2 46 H pO2 50 L Lactate 2.20 10/21/18 06:41 Sodium 132 L Potassium 5.0 Chloride 94 L Carbon Dioxide 24 L BUN 63 H Creatinine 2.1 H BUN/Creatinine Ratio 30 Calcium 8.7 L Total Bilirubin 7.27 H AST 84 H ALT 28 Alkaline Phosphatase 43 Total Protein 6.4 Albumin 3.5 IMAGING: EXAM: CHEST-PORTABLE HISTORY: check for aspiration TECHNIQUE: Chest single view COMPARISON: 10/17/2018 FINDINGS: There are dense bilateral infiltrates which have developed since the prior study. Overall inspiratory effort has improved. The heart is not enlarged. Questionable trace left pleural fluid. IMPRESSION: Development of dense bilateral infiltrates. A/P: Mr. Saeed Carlin is a 73 year old man with history of decompensated alcoholic cirrhosis who presented with worsening ascites, hyponatremia, coagulopathy, and elevated creatinine. Course complicated by aspiration, hypoxic respiratory failure, and bilaternal pneumonia. He is currently receiving albumin and IV lasix. INR remains elevated at 3 despite vitamin K c/w underlying cirrhosis. He does not have acute alcoholic hepatitis and his abnormal LFTs are likely from worsening liver decompensation. Overall, prognosis is poor. #Decompensated ETOH cirrhosis: CP-C, MELD-Na 34 - Cirrhosis: daily LFTs, INR and MELD calculation - Ascites: recommend US-guided LVP to be done by radiology; they are requesting INR to be closer to 1.5 after receiving FFP; although cirrhotic patients tend to be hypercoagulable and technically do not require INR reversal for LVP; recommend colloid resuscitation as needed over crystalloid - PSE: none prior - EV: no overt bleeding; on PPI IV once daily; trend H/H daily, transfuse as needed for hgb 7-8; DO NOT OVERTRANFUSE - HCC: prior workup for HCC negative; recommend q6mo liver US - OLT: MELD 34; patient has been abstinent from alcohol for 5 months #Hyponatremia: hypervolemic: continue 1.5L fluid restriction; trend daily #Elevated Cr: LURDES vs type 2 HRS: gentle diuresis; renally dose meds; avoid nephrotoxins; stopped trental #Anemia: hgb stable; trending H/H #Elevated INR: plan as above #Aspiration PNA: on abx as per primarily team Will follow with you. Overall prognosis poor. Please call with questions or concerns
[2018-10-21] MEDS ORDERED: SODIUM CHLORIDE 0.9% INJ SCH (13:30)
[2018-10-21 14:18] LABS: ALLEN TEST YES; BE -1.6 mmoll (-3.0-3.0); BLOOD TYPE ARTERIAL; HCO3-(ACT) 23.2 mmoll (20.0-26.0); METHB 1.2 % (0.0-1.5); O2(CT) 9.7 mL/dL (15.0-23.0); SAMPLE BLOOD; SAO2 75.6 % (95.0-100.0); SRATE 22 BPM; THB 9.4 g/dL (11.5-17.4); TVOL 550 mL
[2018-10-21 14:21] LABS: MODALITY VENTILATOR; PCO2(98.6) 51 mmHg (35-45); PO2(98.6) 41 mmHg (60-100)
[2018-10-21] MEDS ORDERED: VANCOMYCIN 2,000 MG in NS 500 ML IV ONE (15:00)
--- NOTE | 2018-10-21 16:35 | CONSULTATION ---
DATE OF CONSULTATION: 10/21/2018 REQUESTING PROVIDER: Sebastián Davis MD REASON FOR CONSULTATION: Respiratory failure. HISTORY OF PRESENT ILLNESS: This is a 73-year-old male with a medical history of liver cirrhosis, coagulopathy with thrombocytopenia, iron deficiency anemia, chronic kidney disease, hypertension, and severe protein-calorie malnutrition. He presented to the ER on 10/17/2018 with progressively worsening abdominal and lower extremity edema over a month. He has been admitted to the ICU with decompensated cirrhosis with massive ascites and acute kidney injury with chronic renal insufficiency. He developed paroxysmal atrial fibrillation with rapid ventricular response yesterday afternoon. Based on the nursing notes, at some point he vomited and likely got aspirated too. His respiratory status has been progressively declining since last night and he eventually was intubated this morning. There is no family at the bedside. The information is collected from E chart. PAST MEDICAL AND SURGICAL HISTORY: 1. Liver cirrhosis. 2. Coagulopathy with thrombocytopenia. 3. Iron deficiency anemia. 4. Chronic kidney disease. 5. Hypertension. 6. Severe protein-calorie malnutrition. 7. Cholecystectomy. 8. Appendectomy. SOCIAL HISTORY: The patient was a former heavy drinker with five to six drinks daily and quit drinking four months ago. He has no history of tobacco or illicit drug use. FAMILY HISTORY: Unable to be obtained. ALLERGIES: Meperidine. REVIEW OF SYSTEMS: Unable to be obtained. PHYSICAL EXAMINATION: Vital Signs: Temperature 98.0, blood pressure 101/49, pulse 65, respiratory rate 32, oxygen saturation 84% on AC mechanical ventilator with spontaneous rate 22, FIO2 100%, tidal volume 550, and PEEP 12. General: On AC mechanical ventilator. Appears jaundiced. HEENT: Atraumatic. Trachea midline. ET tube in place. Respiratory : Mechanically ventilated. Scattered crackles bibasilar. Cardiovascular: Regular rate and rhythm with murmur. Gastrointestinal: Large, ascitic abdomen. Bowel sounds normoactive in all four quadrants. Distended. Extremities: Bilateral lower extremity and bilateral upper extremity edema 2+. Neurologic: Sedated. LABORATORY DATA: White blood cells 14.10, hemoglobin 9.7, hematocrit 28.2, platelet 48,000. Sodium 132, potassium 5.0, chloride 94, carbon dioxide 24, BUN 63, creatinine 2.1, AST 7.27, ALT 84. proBNP 18,523. ABG: pH of 7.30, pCO2 51, pO2 41, HCO3 23.2, base excess -1.6, oxyhemoglobin 73.2, and lactate 3.10. ASSESSMENT: This is a 73-year-old male with medical history of liver cirrhosis, coagulopathy with thrombocytopenia, iron deficiency anemia, chronic kidney disease, hypertension, and severe protein-calorie malnutrition. He has been admitted to the Intensive Care Unit since 10/17/2018 with decompensated cirrhosis with massive ascites and acute kidney injury on chronic renal insufficiency. During this hospital stay, he developed atrial fibrillation and acute hypoxemic hypercapnic respiratory failure. 1. Respiratory failure. 2. Pneumonia, likely aspiration. 3. Shock. 4. Cirrhosis. 5. Congestive heart failure, possible. 6. Atrial fibrillation. 7. Acute renal insufficiency. 8. Coagulopathy secondary to liver disease. PLAN: 1. Continue AC mechanical ventilator and start weaning trials when appropriate. 2. Continue pressors. 3. Continue antibiotics. 4. Follow up with ABGs, CBC, BMP, proBNP, and chest x-ray. 5. Dr. Elliott, belt sander, Dr. Diaz, the gas engine performance engineer, and Dr. Summers, the dobby looms pegger are on board. 6. Continue GI and DVT prophylaxes. Thank you for the courtesy of this consultation. Dictated by VIOLET Larry for Cesario Marie MD cc: VIOLET Larry MD [facility]
[2018-10-21] MEDS: DIPRIVAN 1% 1,000 MG/100 ML BOTTLE IV SCH ×3 (17:22→21:58)
[2018-10-21] MEDS: ROCEPHIN 1 GM in NS 50 ML IV SCH (17:28)
[2018-10-21 18:05] LABS: BODY FLUID SOURCE PERITONEAL FLUID; WBC BF 131 /cumm
[2018-10-21 18:14] LABS: ALBUMIN BODY FLUID 0.8 g/dL
[2018-10-21 18:35] LABS: MONOS 75 %; POLYS 25 %
--- NOTE | 2018-10-21 18:47 | OPERATIVE NOTE ---
PROCEDURE DATE: 10/21/2018 TIME OF PROCEDURE: 1630. TYPE OF PROCEDURE: Abdominal paracentesis. INDICATION: Massive ascites complicating respiration. PROCEDURE NOTE: Mr. Carlin is a 73-year-old male with massive ascites which we have been planning to tap. However, unfortunately, today Mr. Carlin became remarkably hypoxemic and had to be intubated. The son who is on file as the next of kin could not be reached so his significant other who has been living with him for the past 7 years signed the consent. At the beginning of the procedure, ultrasound was used to localize the deepest pocket of fluid. Subsequently, time-out was made. Two nurses and a nursing home assistant were at the bedside. The patient's skin was prepped and lidocaine was used as local anesthesia. A small niche was made on the skin with the scalpel and the paracentesis needle was introduced under negative pressure until the fluid was obtained. The trocar was easily advanced and the needle was removed. Subsequently, an initial 50 mL of clear orange-dark yellow fluid was obtained which was sent for analysis. Subsequently, the trocar was attached to the draining system. A total of 7.1 L of clear dark orange fluid freely got drained from the abdominal cavity which was sent for numerous analyses. Mr. Carlin continued to be hemodynamically stable. Throughout the procedure, his O2 saturation which was about 88% at the beginning continue to improve up to about 99% at the end of the procedure. He did tolerate the procedure very well. He continues to be intubated and we will continue with critical care management. There was no blood loss and there were no immediate complications. TIME SPENT FOR PROCEDURE: About 30 minutes. We will give a total of a 100 gram of albumin to help with intravascular volume after this large volume paracentesis. cc: Sebastián Davis MD MTDD
[2018-10-22] MEDS: DIPRIVAN 1% 1,000 MG/100 ML BOTTLE IV SCH ×2 (01:59→04:56)
[2018-10-22] MEDS: LOPRESSOR IV SCH ×2 (02:49→08:08)
[2018-10-22] MEDS: LEVOPHED 8 MG in D5 1/2 NS 250 ML IV SCH ×2 (03:47→11:11)
[2018-10-22 04:43] LABS: ALLEN TEST YES; BE -2.6 mmoll (-3.0-3.0); BLOOD TYPE ARTERIAL; HCO3-(ACT) 22.9 mmoll (20.0-26.0); METHB 1.5 % (0.0-1.5); O2(CT) 13.9 mL/dL (15.0-23.0); PCO2(98.6) 34 mmHg (35-45); PO2(98.6) 204 mmHg (60-100); SAMPLE BLOOD; SAO2 100.3 % (95.0-100.0); SRATE 22 BPM; THB 9.8 g/dL (11.5-17.4); TVOL 550 mL; pH(98.6) 7.41 (7.35-7.45)
[2018-10-22 04:45] LABS: MODALITY VENTILATOR
[2018-10-22] MEDS: FLAGYL 500 MG/NS 500 MG/100 ML IVPB IV SCH ×2 (05:42→12:15)
[2018-10-22] MEDS: FOLIC ACID 1 MG in NS 50 ML IV SCH (05:42)
[2018-10-22 05:58] LABS: EOS# 0.01 X1000 (0.0-0.7); EOS% 0.1 % (0.0-10.0); HEMATOCRIT 27.2 % (42.0-52.0); HEMOGLOBIN 9.2 g/dL (14.0-18.0); IMM GRAN# 0.02 X1000 (0.0-0.04); IMM GRAN% 0.1 % (0.0-0.5); LYMPH# 0.64 X1000 (1.2-3.4); LYMPH% 4.5 % (20.5-51.1); MCH 33.9 PG (27-31); MCHC 33.8 g/dL (33-37); MCV 100.4 FL (81-99); MONO% 9.9 % (1.7-9.3); MPV 11.3 FL (7.4-10.4); NEUT# 12.08 X1000 (1.4-6.5); NEUT% 85.4 % (42.2-75.2); PLT 46 X1000 (130-400); RBC 2.71 XMIL (4.7-6.1); RDW 17.4 % (11.5-14.5); WBC 14.15 X1000 (4.8-10.8)
[2018-10-22 06:22] LABS: ALB/GLOB RATIO 1.9; ALBUMIN 3.9 g/dL (3.5-5.0); CALCIUM 8.4 mg/dL (8.8-10.2); CREATININE 3.1 mg/dL (0.7-1.2); TOTAL BILIRUBIN 5.83 mg/dL (0.20-1.00)
[2018-10-22 06:35] LABS: LYMPHS 7 % (21-51); MONO 8 % (1-9); SEGS 85 % (42-75)
--- NOTE | 2018-10-22 07:45 | Diag Imaging Result Doc PS360 ---
CHEST-1 VIEW - 10/22/2018 INDICATION: SOB COMPARISON: 10/21/2018 FINDINGS: Stable endotracheal tube in good position. There are grossly stable dense bilateral mixed, predominantly alveolar infiltrates. Heart size is top normal. There is a small right pleural effusion. IMPRESSION: No significant change from prior. Electronically signed by Flavio Guzman 10/22/2018 7:43 AM
[2018-10-22] MEDS ORDERED: ZYVOX 600 MG/D5W 600 MG/300 ML IVPB IV SCH (08:00)
[2018-10-22] MEDS ORDERED: MAXIPIME 1 GM in NS 50 ML IV SCH (08:00)
[2018-10-22] MEDS ORDERED: ATIVAN IV PRN (08:05)
[2018-10-22] MEDS ORDERED: SANDOSTATIN 500 MICROGM in D5W 100 ML IV SCH (08:15)
[2018-10-22] MEDS ORDERED: ALBUMIN 25% IV SCH (09:00)
--- NOTE | 2018-10-22 09:49 | PROVIDER PROGRESS NOTE ---
Progress Note - - S: Patient intubated yesterday and started on pressors. Diagnostic and therapeutic LVP was performed with 7.1L of ascites removed and albumin administration. No SBP. He is now anuric and requiring increasing amounts of BP support to maintain MAPS at 60 O: Last Vital Signs Temp 97.1 F L 10/22/18 03:45 Pulse 62 10/22/18 06:01 Resp 22 10/22/18 06:01 BP 90/40 10/22/18 06:01 Pulse Ox 100 10/22/18 06:01 Height 5 ft 9 in Weight 200 lb 14.4 oz GEN: intubated HEENT: mild icterus NECK: no JVD PULM: vented breath sounds CARDIAC: RRR, no murmurs ABD: distended decreased, soft, dependent anasarca EXT: LE edema, WWP NEURO: intubated, sedated LABS: 10/22/18 10/22/18 04:15 04:15 WBC 14.15 H Hgb 9.2 L Plt Count 46 L Sodium 131 L Potassium 5.0 Chloride 95 L Carbon Dioxide 22 L BUN 73 H Creatinine 3.1 H Glucose 119 H Calcium 8.4 L Total Bilirubin 5.83 H AST 62 H ALT 22 Alkaline Phosphatase 42 Total Protein 6.0 L Albumin 3.9 A/P: Mr. Saeed Carlin is a 73 year old man with history of decompensated alcoholic cirrhosis who presented with worsening ascites, hyponatremia, coagulopathy, and elevated creatinine. Course complicated by aspiration PNA, hypoxic respiratory failure, shock, and anuric LURDES. He is on pressors and broad spectrum antibiotics. His calculated MELD-Na using his last INR is 38, which portends a poor prognosis with 3-month mortality of 52.6% even without starting dialysis. I recommend palliative care consultation and goals of care discussion. Typically , I would recommend consultation with transplant center, but given his age and recent alcohol history, he would not be a candidate for transplant. #Shock: leukocytosis noted - suspect septic in setting of PNA - on abx and pressors - maintain MAPS 60 #Decompensated ETOH cirrhosis: CP-C, MELD-Na 38 - Cirrhosis: daily LFTs, INR and MELD calculation - Ascites: s/p LVP 10/21; no SBP; albumin is 3.9 already; continue albumin administration today as per albumin challenge - PSE: none prior - EV: no overt bleeding; on PPI IV once daily; trend H/H daily, transfuse as needed for hgb 7-8; DO NOT OVER-TRANSFUSE - HCC: prior workup for HCC negative; recommend q6mo liver US - OLT: MELD 38; not a candidate for transplant given age, alcohol, active infection #Hyponatremia: stable; continue 1.5L fluid restriction; trend daily #Elevated Cr: LURDES vs type 1 HRS: holding diuretics; receiving albumin; renal following #Anemia: hgb stable; trending H/H #Aspiration PNA: intubated, on abx as per primarily team #Thrombocytopenia: secondary to cirrhosis Will follow with you. Overall prognosis poor. Please call with questions or concerns
--- NOTE | 2018-10-22 09:59 | NEPHROLOGY PROGRESS NOTE ---
DATE: 10/22/2018 TIME SEEN: Time seen 06:30. SUBJECTIVE: Mr. Carlin is resting quietly in bed. He is ventilator dependent. Appears in no acute distress. OBJECTIVE: LABORATORY DATA: Sodium is 131, potassium 5, chloride 95, CO2 22, BUN 73, creatinine 3.1, glucose 119, his anion gap is 14, calcium is 8.4, albumin 3.9. White count 14.15, hemoglobin 9.2, hematocrit 27.2, platelet count 46,000. Patient's ABGs, pH 7.41, CO2 34, PO2 204, bicarb 22.9. The patient has a lactate of 3 on 100% at this time FiO2. PHYSICAL EXAMINATION: Most recent vital signs: His last temperature 97.1 degrees, blood pressure 93/41, heart rate 63, respirations 18. He is on 50% FiO2. Last recorded saturation 98%. He has had 2708 in, he had 80 mL out recorded with 7.1 L removed on paracentesis yesterday. General: This is a 73-year-old male, currently resting in bed. He is ventilator dependent. Appears in no acute distress. Skin: Warm and dry. HEENT: Normocephalic, atraumatic. Conjunctivae is pale. He has GIO. Mucous membranes are dry. Neck: Supple. Trachea midline. Positive JVD. Cardiovascular: He is regular rate and rhythm. He is without gallop. Lungs: Have coarse breath sounds bilateral with scattered crackles to the bibasilar lung lira. Remain on ventilator support. Abdomen: Distended. He does have a displaced palpable PMI midline below the midclavicular area on the right. No bruit auscultated. Genitourinary: Not inspected. Minimal urine out. Extremities: Continues with 3+ lower extremity edema. No clubbing or cyanosis. Neurological : As mentioned above. ASSESSMENT AND PLAN: 1. Acute kidney injury. This is in the context of hepatorenal syndrome type 2. The patient remains on norepinephrine. He has been on Lasix. He continues to require albumin. A discussion has been had with the patient's significant other in regards with no changes to the patient's outcome if offered hemodialysis. At this time, he is not a hemodialysis candidate. 2. Electrolytes and acid-base balance. These are acceptable. 3. Anemia. This is acceptable. 4. Liver disease. This is followed by the primary care. I would to thank you for allowing us to follow with this patient. I agree with the above. I will not offer dialysis because if will not change the outcome of his illness. His power of consumer attorney is his son but they are estranged and neither the family nor the staff have been able to reach him by phone. rg Dictated by VIOLET Purvis for Beni Diaz MD Face to face encounter, data reviewed, discussed with Nicoel Mansfield on 10/22/18. I agree with the above assessment and plan of care. rg cc: VIOLET Purvis MD [facility]
--- NOTE | 2018-10-22 10:12 | PROGRESS NOTE ---
DATE: 10/22/2018 SUBJECTIVE: Today, Mr. Carlin is still in the ICU. He continues to be intubated. No acute changes overnight except that he is not making adequate urine. OBJECTIVE: Vital Signs: Blood pressure is 90/40 and he is almost maximized on Levophed. Pulse is 62, respirations are 22, temperature is 97.1 degrees. General Examination: Mr. Carlin is a 73-year-old, gentleman. He is in bed, currently intubated. HEENT: Mucosa is pink and moist. Anicteric. Acyanotic. Neck: Supple. Chest: Air entry is bilaterally reduced. There are still some crackles posteriorly. Cardiovascular: Regular rate and rhythm. No murmurs. Abdomen: Soft. Distended but less distended than yesterday. There is some dependent edema around the lateral aspect of the abdominal wall. Genitourinary: Macias catheter is in place. Extremities: About 2+ pedal edema. AUTOMOTIVE ELECTRICAL HELPER: The patient is currently intubated and sedated on propofol but he will withdraw to painful stimulation. Laboratory Data: WBC is 14.15, hemoglobin is 9.2, platelet count of 46,000. Chemistry is also reviewed. Sodium is 131, potassium is 5.0, chloride 95, creatinine has gone up to 3.1. The patient's peritoneal fluid analysis showed WBCs 131 but it is predominantly lymphocytic fluid. Albumin was 0.8. Serum albumin was 2.9. The patient's SAAG is 2.1 which is more than 1.1. Is and Os: Urine output was 80 mL in 24 hours. Patient is currently 5238 positive balance during the hospital course. Current Medications: Have also been reviewed. Doxycycline and ceftriaxone have all been discontinued. The patient is currently on cefepime with Zyvox and metronidazole. Diagnostic Studies: A chest x-ray this morning shows grossly stable dense bilateral mixed, predominantly alveolar infiltrates. There is a small right pleural effusion. No significant change. ASSESSMENT: 1. Acute hypoxemic respiratory failure secondary to pulmonary edema and aspiration pneumonia. Patient is currently intubated. Pulmonary medicine is on board. 2. Severe ascites secondary to cirrhosis of the liver. The patient is status post paracenteses with 7.1 L removed yesterday. SAAG is more than 1.1, which is consistent with portal hypertension etiology. 3. Acute kidney injury secondary to hepatorenal syndrome type 1. The patient's urine output continues to decline. Nephrology is on board. We will continue with albumin. I have also started the patient on an octreotide drip. 4. Cirrhosis of the liver secondary to alcohol abuse, complicated with ascites, coagulopathy, and pancytopenia. MELD score 32 with low sodium. 5. Folate deficiency. We will continue replacement. 6. Anasarca secondary to fluid overload from end-stage liver failure and renal failure. cc: Sebastián Davis MD
[2018-10-22] MEDS: MORPHINE IV PRN ×2 (11:34→15:18)
[2018-10-22] MEDS: ICAR-C PO SCH (11:49)
[2018-10-22] MEDS: CENTRUM SILVER PO SCH (11:49)
[2018-10-22] MEDS: PROTONIX IV SCH (13:30)
--- NOTE | 2018-10-22 16:48 | PROGRESS NOTE ---
DATE: 10/22/2018 SUBJECTIVE: I understand that we had to go up on his oxygen demand in terms of the FIO2, because he was saturating in the low 80s. Palliative nurses have spoken extensively to the son and the significant other (girlfriend who has been living with him for the past 7 years). Both of them have expressed that they would want Mr. Carlin to be DNR level 1, and that understanding the complex and the poor prognosis of Mr. Carlin, and the fact that it is unlikely for him to survive all these comorbidities with all this multiorgan failure, they recommend compassionate extubation. I have also personally reached out to the son (Julián Carlin). His number is [phone]. I have also spoken to him today, and he reconfirmed the conversation before with Ms. Wilson the palliative nurse and also the decision to make Mr. Carlin DNR level 1 and to extubate compassionately. I have spoken with the girlfriend as well yesterday and that was the plan. I would therefore change Mr. Carlin's status in the computer to DNR level 1 to reflect my conversation with the son and with the girlfriend, and I will also order extubation as well. cc: Sebastián Davis MD
[2018-10-22 18:29] VITALS: BP 60/26
--- NOTE | 2018-10-22 23:49 | DISCHARGE SUMMARY ---
ADMISSION DATE: 10/17/2018 DISCHARGE DATE: 10/22/2018 DATE OF ADMISSION: 10/17/2018. DATE OF : 10/22/2018. TIME OF : Was 17:15. CONSULTATIONS DURING THIS ADMISSION: 1. GI was consulted, the patient was seen by Dr. Leblanc followed up by Dr. Melissa. 2. Pulmonary Medicine was consulted, the patient was seen by Dr. Marie. 3. Nephrology was consulted, the patient was seen by Dr. Diaz. INVASIVE PROCEDURE DONE DURING THIS ADMISSION: Paracentesis was done. DIAGNOSES AT THE TIME OF ADMISSION: 1. Cirrhosis with ascites. 2. Acute kidney injury. 3. Hyperkalemia. 4. Hyponatremia. DIAGNOSES AT THE TIME OF : 1. Acute hypoxemic respiratory failure secondary to pulmonary edema and aspiration pneumonia. 2. Massive ascites secondary to cirrhosis of the liver with portal hypertension. 3. Acute kidney injury secondary to hepatorenal syndrome type 1. 4. Cirrhosis of the liver due to alcohol abuse, complicated with ascites, coagulopathy, pancytopenia. MELD score of 38 with low sodium and a Child Couch C (score of 12). 5. Anasarca. 6. Folate and other mineral deficiencies. PRESENTING COMPLAINT: Swelling in the abdomen and lower extremities. HISTORY OF PRESENTING COMPLAINT: Mr. Carlin is a 73-year-old male who is known to have alcohol-induced cirrhosis of the liver, came to the emergency department because of increasingly worse associated with some shortness of breath. The patient presented to the emergency department and was found to have O2 saturation of 88%, hypotensive with a blood pressure of 97/23, was subsequently admitted to the ICU for critical care management. HOSPITAL COURSE: Mr. Carlin was started initially on broad-spectrum IV antibiotics, admitted to the ICU, coagulopathy was corrected with FFP and multiple doses of vitamin K. The patient's creatinine also continues to progressively get worse. Nephrology was consulted. The patient was evaluated by Dr. Diaz who after a couple of times of seeing the patient recommended that the patient will not benefit from dialysis because it is not going to help in the overall general prognosis. The patient was on a non-rebreather initially; however, we had to put him on BiPAP at some point. I understand vomited and aspirated and the following day we had to intubate the patient and Pulmonary Medicine was consulted. Mr. Carlin's general condition continues to decline, he went into full-blown multi-organ failure, and multiple providers had discussions with his significant other (girlfriend as well as the son who I understand has not been around the father for a very long time, but the nurses and the palliative nurse was able to localize him). Mr. Carlin was subsequently made DNR level 1, and the family recommended compassionate extubation since his prognosis continues to be remarkably poor. The patient was seen also by GI who did have the same view. Mr. Carlin was subsequently extubated today and unfortunately at 17:15 he demised with a flat line on the surveillance monitor. He was subsequently pronounced by the ICU nurses. cc: Sebastián Davis MD MTDD
[2018-10-23 12:16] LABS: O2HB 73.2 % (95.0-99.0)
[2018-10-23] MEDS ORDERED: VANCOMYCIN 1,700 MG in NS 250 ML IV SCH (15:00)
== END 2018-10-22 17:15 | disposition expired | DRG 432 ==
LOC: ED 15:30 → ICU 21:19 → SUATTDRO 21:19
PROVIDERS: ATTEND Internal Medicine
CPT/HCPCS: 31500; 36430; 51702; 71010; 71045; 76700; 80048; 80053; 81001; 82042; 82140; 82150; 82270; 82570; 82607; 82728; 82746; 82805; 83540; 83550; 83690; 83735; 83880; 84156; 84300; 84443; 84466; 84540; 85025; 85027; 85045; 85610; 86850; 86900; 86901; 86920; 87040; 87070; 87075; 89051; 93005; 93010; 93306; 94002; 94003; 94640; 94660; 94761; 96374; 96375; 97161; 99285; A9270; C9113; J0330; J0610; J0692; J0696; J1160; J1630; J1940; J2020; J2060; J2270; J2354; J2370; J2405; J3370; J3430; J7040; J7050; J7060; P9016; P9017; P9047; S0030; S0164